=== PATIENT | female | born 1995 | race Caucasian/White ===

== ENCOUNTER 2018-02-18 02:00 | Emergency (ER) | payer BC ==
--- NOTE | 2018-02-18 02:18 | EDPHY ---
H & P Stated Complaint: SLIPPED AND FELLON ICE L SHOULDER PAIN Time Seen by Provider: 02/18/18 02:18 HPI/ROS: HPI CHIEF COMPLAINT: Left shoulder pain. HISTORY OF PRESENT ILLNESS: 22-year-old female presents emergency room left shoulder pain. She states she slipped and fell fell on outstretched left hand. And believes that her shoulder is dislocated. Denies any other areas of trauma. Denies alcohol/drugs. Denies chest pain shortness of breath. Did have 3 alcoholic beverages tonight. Denies numbness or tingling. Main complaint left shoulder pain. Past Medical History: Anxiety. Past Surgical History: No recent surgery Social History: Alcohol this evening. Family History: Noncontributory. ROS REVIEW OF SYSTEMS: 10 Systems were reviewed and negative with the exception of the elements mentioned in the history of present illness. Exam Constitutional triage nursing summary reviewed, vital signs reviewed, awake/ alert. Eyes normal conjunctivae and sclera, EOMI, PERRLA. HENT normal inspection, atraumatic, moist mucus membranes, no epistaxis, neck supple/ no meningismus, no raccoon eyes. Respiratory clear to auscultation bilaterally, normal breath sounds, no respiratory distress, no wheezing. Cardiovascular rate normal, regular rhythm, no murmur, no edema, distal pulses normal. Gastrointestinal soft, non-tender, no rebound, no guarding, normal bowel sounds, no distension, no pulsatile mass. Genitourinary no CVA tenderness. Musculoskeletal left upper extremity: Obvious deformity left shoulder appears to be anteriorly dislocated. Left arm is distally neurovascular intact with good distal pulse, good cap refill sensation intact. Good catheterization laboratory technician strength. Limited range of motion due to pain of the left shoulder. no midline vertebral tenderness, full range of motion, no calf swelling, no tenderness of extremities, no meningismus, good pulses, neurovascularly intact. Skin pink, warm, & dry, no rash, skin atraumatic. Neurologic awake, alert and oriented x 3, AAOx3, moves all 4 extremities equally, motor intact, sensory intact, CN II-XII intact, normal cerebellar, normal vision, normal speech. Psychiatric normal mood/affect. Heme/Lymph/Immune no lymphadenopathy. Differential Diagnosis: Includes but is not limited to in a particular order left shoulder dislocation left shoulder fracture, humerus fracture, humeral head fracture. Medical Decision Making: Plan for this patient x-ray left shoulder. Rule out fracture versus dislocation. Re-evaluation: Left shoulder x-ray appears to be anteriorly dislocated. Interpreted by myself. No evidence of acute fracture. 0320: Plan for patient will try to reduce her left shoulder dislocation. If she is unable to tolerate it will plan on sedation. ED shoulder Dislocation Procedure: I was able to apply gentle downward left arm traction with countertraction with sheet. After deep tissue massage of the trapezius and scapula and deltoid I was able to relax her muscles and apply gentle traction was able to relocate her left shoulder. Post reduction she was neurovascular intact good distal pulse, sensation intact x-ray nerve intact with full range of motion of her left shoulder. She tolerated this very well. Patient has been placed in a sling. Post reduction x-ray has been obtained. I do recommend anti-inflammatory pain medicine, ice and sling for comfort. Follow up with Orthopedics. X-ray post reduction reviewed by myself. Good anatomic alignment. She is neurovascular intact. No evidence of fracture. Source: Patient - Personal History LMP (Females 10-55): 22-28 Days Ago Current Tetanus/Diphtheria Vaccine: Yes Current Tetanus Diphtheria and Acellular Pertussis (TDAP): Yes - Medical/Surgical History Hx Asthma: Yes Hx Chronic Respiratory Disease: No Hx Diabetes: No Hx Cardiac Disease: No Hx Renal Disease: No Hx Cirrhosis: No Hx Alcoholism: No Hx HIV/AIDS: No Hx Splenectomy or Spleen Trauma: No Other PMH: ANXIETY - Social History Smoking Status: Never smoked Constitutional: Initial Vital Signs Temperature (C) 36.5 C 02/18/18 02:06 Heart Rate 90 02/18/18 02:06 Respiratory Rate 18 02/18/18 02:06 Blood Pressure 125/88 H 02/18/18 02:06 O2 Sat (%) 100 02/18/18 02:06 O2 Delivery Mode Room Air Allergies/Adverse Reactions: No Known Allergies Allergy (Unverified 02/18/18 02:07) Home Medications: Medication Instructions Recorded Albuterol [Proventil Inhaler HFA 1 - 2 puffs IH Q4H 02/18/18 (*)] clonazePAM [Clonazepam] 0.5 mg PO 02/18/18 Departure - Departure Disposition: Home, Routine, Self-Care Clinical Impression: Shoulder dislocation Qualifiers: Encounter type: initial encounter Laterality: left Qualified Code(s): S43.005A - Unspecified dislocation of left shoulder joint, initial encounter Condition: Good Instructions: Shoulder Dislocation (ED) Additional Instructions: 1. Follow up with Orthopedics. 2. Sling for comfort. 3. Anti-inflammatory pain medicine. You may alternate ibuprofen and Tylenol every 6-8 hours for pain control. 4. Ice. Referrals: NONE *PRIMARY CARE P,. [Primary Care Provider] - As per Instructions Flynn Fontenot MD [Medical Doctor] - As per Instructions
[2018-02-18 03:50] VITALS: BP 132/80
== END 2018-02-18 03:50 | disposition home or self-care (01) ==
PROC: 0RSKXZZ Reposition Left Shoulder Joint, External Approach (ICD-10-PCS; principal; 2018-02-18)
DX: S43.005A Unspecified dislocation of left shoulder joint, initial encounter (principal); W01.0XXA Fall on same level from slipping, tripping and stumbling without subsequent striking against object, initial encounter
CPT/HCPCS: L3980